=== PATIENT | male | born 1980 | race Caucasian/White ===

== ENCOUNTER 2018-05-04 07:37 | Emergency (ER) | payer OTHER ==
[~2018-05-04] VITALS: Ht 180.3 cm; Wt 87.1 kg
[2018-05-04] MEDS ORDERED: NAPR220C11 PO (08:02)
--- NOTE | 2018-05-04 08:07 | ED Lower Extremity ---
General Chief Complaint: Lower Extremity Stated Complaint: RT LEG INJ Source: family Exam Limitations: no limitations History of Present Illness Date Seen by Provider: May 04, 2018 Time Seen by Provider: 08:02 Initial Comments This 37-year-old white male presents after sustaining injury to his right knee last night at work. The patient was prying with a heavy metal pole when it suddenly slipped loose and struck him over the lateral aspect of his right knee. Patient is complaining of pain over the impact area which is the lateral tibial plateau. The patient states that the pain is sharp in nature, nonradiating, and made worse with weightbearing and flexion and extension of his right knee. They patient's past medical history includes a previous meniscal injury to the right knee and a patellar fracture. The patient denies other injury and his accident. This work related accident has been reported to his employer. Allergies and Home Medications Allergies Coded Allergies: No Known Drug Allergies (Unverified , 05/04/18) Patient Home Medication List Home Medication List Reviewed: Yes Review of Systems Constitutional: No chills EENTM: no symptoms reported Respiratory: No cough Cardiovascular: No chest pain Gastrointestinal: No nausea Genitourinary: no symptoms reported Musculoskeletal: see HPI; No back pain; joint pain (right knee), joint swelling (right knee) Skin: no symptoms reported Psychiatric/Neurological: No Symptoms Reported Past Zirigft-Tvdpeg-Crhrfb Hx Past Med/Social Hx: Reviewed Nursing Past Med/Soc Hx Patient Social History Recent Foreign Travel: No Contact w/Someone Who Travel: No Physical Exam Vital Signs Vital Signs - First Documented 05/04/18 07:51 Temp 98.6 Pulse 86 Resp 16 B/P (MAP) 133/87 (102) Pulse Ox 99 Capillary Refill : Height, Weight, BMI Height: '" Weight: lbs. oz. kg; BMI Method: General Appearance: WD/WN, no apparent distress HEENT: normal ENT inspection Neck: normal inspection Cardiovascular: regular rate, rhythm Respiratory: normal breath sounds Gastrointestinal: normal bowel sounds, non tender Back: normal inspection Hips: bilateral hip normal inspection Legs: bilateral leg normal inspection Knees: left knee non-tender, left knee normal inspection, left knee normal range of motion, left knee no evidence of injury; right knee pain, right knee soft tissue tenderness (over the right lateral tibial plateau.), right knee other (the patient's limited examination of the cruciates collaterals and menisci of the right knee were unremarkable.) Ankles: bilateral ankle normal inspection Feet: bilateral foot normal inspection Neurologic/Psychiatric: no motor/sensory deficits, alert, normal mood/affect Skin: normal color, warm/dry Progress/Results/Core Measures Results/Orders My Orders Orders - SAE MELENDEZ MD Knee 3 View Right (05/04/18 08:01) Ibuprofen Tablet (Motrin Tablet) (05/04/18 08:15) Medications Given in ED Current Medications Medications Dose Ordered Sig/Gladys Route Start Time Stop Time Status Last Admin Dose Admin Ibuprofen 800 mg ONCE ONCE PO 05/04/18 08:15 05/04/18 08:16 DC 05/04/18 08:07 800 MG Vital Signs/I&O 05/04/18 07:51 Temp 98.6 Pulse 86 Resp 16 B/P (MAP) 133/87 (102) Pulse Ox 99 Progress Progress Note : Time: 08:59 Progress Note X-ray of the right knee failed to show a fracture or dislocation. The patient was much improved with 800 mg of ibuprofen. The patient had a knee splint which he applied. I discussed findings with patient and asked that he follow-up closely today with work comp. I recommended that a reevaluation with orthopedics would be reasonable. I advised the patient return if any problems or questions. Departure Impression Primary Impression: Contusion of knee Qualified Codes: S80.01XA - Contusion of right knee, initial encounter Disposition: HOME, SELF-CARE Condition: Improved Departure-Patient Inst. Decision time for Depature: 09:02 Referrals: NO,LOCAL PHYSICIAN (PCP) Primary Care Physician Patient Instructions: Contusion (DC) Add. Discharge Instructions: 800 mg of ibuprofen 3 times a day. Knee splint. Follow up with work comp doctor today. Return if any problems or questions. All discharge instructions reviewed with patient and/or family. Voiced understanding. SAE MELENDEZ MD May 04, 2018 08:07
[2018-05-04] MEDS ORDERED: IBUPROFEN 800 MG (MOTRIN) TAB PO ONE (08:15)
--- NOTE | 2018-05-04 09:02 | Diagnostic Imaging Report ---
EXAMINATION: Right knee at 8:04 AM INDICATION: Injury, knee pain Three views were obtained. There are no prior studies available for comparison. There is no fracture, dislocation or acute bony abnormality evident. The knee joint is well-maintained although there is mild narrowing of the patellofemoral space. The soft tissues are unremarkable. IMPRESSION: There is no evidence for an acute bony abnormality. Dictated by: Dictated on workstation # [id number]
[2018-05-04 09:10] VITALS: BP 123/80
== END 2018-05-04 09:15 | disposition home or self-care (01) ==
LOC: ER FS 07:44
DX: S80.01XA Contusion of right knee, initial encounter (principal); W01.198A Fall on same level from slipping, tripping and stumbling with subsequent striking against other object, initial encounter; Y92.59 Other trade areas as the place of occurrence of the external cause; Y99.0 Civilian activity done for income or pay
CPT/HCPCS: 73562

== ENCOUNTER 2020-08-21 20:15 | Emergency (ER) | payer BC ==
[~2020-08-21 20:15] MED LIST: NAPR220C11 PO
[2020-08-21] MEDS ORDERED: AUGMENTIN 875 MG TAB (AMOXICILLIN/CLAVULANATE) PO ONE (20:30)
[2020-08-21] MEDS ORDERED: BUPIVACAINE 0.5% 30 ML (SENSORCAINE) VIAL INJ ONE (20:30)
[2020-08-21] MEDS ORDERED: LIDOCAINE 2% VISCOUS 15 ML UDC PO ONE (20:30)
[2020-08-21] MEDS ORDERED: NFCHLORHGL MM (20:33)
[2020-08-21] MEDS ORDERED: AMOX-358 PO (20:33)
--- NOTE | 2020-08-21 20:34 | ED EENT ---
History of Present Illness General Chief Complaint: Dental Problems/Pain Stated Complaint: TOOTH PAIN,LT SIDE FACIAL SWELLING Nursing Triage Note: Pt complaining of left upper and lower dental pain. Pt has an appointment with a dentist next week Source: patient Exam Limitations: no limitations History of Present Illness Date Seen by Provider: Aug 21, 2020 Time Seen by Provider: 20:15 Initial Comments Patient presents ER by private conveyance from home with chief complaint of dental pain going on for the past couple days. He has an appointment next week with the dentist. He is not on antibiotics. He has been using topical esox-kdz-nktehnn gels as well as Tylenol and ibuprofen without significant relief of pain and he does not feel like he can sleep tonight. He denies any allergies to medicines Allergies and Home Medications Allergies Coded Allergies: No Known Drug Allergies (Unverified , 05/04/18) Home Medications Amoxicillin/Potassium Clav 1 Each Tablet, 1 EACH PO BID Prescribed by: STEVE SONG on 08/21/202032 Chlorhexidine Gluconate 473 Ml Mouthwash, 30 ML MM BID Prescribed by: STEVE SONG on 08/21/202032 Patient Home Medication List Home Medication List Reviewed: Yes Review of Systems Review of Systems Constitutional: No chills, No diaphoresis Eyes: Denies Blindness, Denies Blurred Vision Ears: Denies Dizziness, Denies Pain Nose: denies clots, denies congestion Mouth: denies clots, denies loose teeth; pain, swelling Throat: denies pain; swelling Respiratory: No cough, No short of breath All Other Systems Reviewed Negative Unless Noted: Yes Past Vmximwv-Pczojp-Myjtna Hx Patient Social History Alcohol Use: Denies Use Recent Infectious Disease Expo: No Recent Hopitalizations: No Seasonal Allergies Seasonal Allergies: Yes Past Medical History Surgeries: Yes (oral/facial surgery for tooth abscess) Respiratory: No Cardiac: No Neurological: No Genitourinary: No Gastrointestinal: No Musculoskeletal: Yes (hand fx; patella fx; collar bone fx) Fractures Endocrine: No HEENT: No Cancer: No Psychosocial: No Blood Disorders: No Adverse Reaction/Blood Tranf: No Physical Exam Vital Signs Vital Signs - First Documented 08/21/20 20:18 Pulse 83 Resp 18 B/P (MAP) 165/91 (115) Pulse Ox 96 O2 Delivery Room Air Height, Weight, BMI Height: 5'11.00" Weight: 192lbs. oz. 87.146460qz; BMI Method:Stated General Appearance: WD/WN, no apparent distress Eyes: bilateral eye normal inspection, bilateral eye PERRL, bilateral eye EOMI Ears: bilateral ear auricle normal, bilateral ear canal normal Nose: normal inspection; No active bleeding, No discharge Mouth/Throat: No tongue swollen; other (Extensive dental caries and some swelling of the gingiva throughout. Tenderness without fluctuation palpable along the left lower jaw) Neck: non-tender, full range of motion, supple Cardiovascular: normal peripheral pulses, regular rate, rhythm Respiratory: no respiratory distress, no accessory muscle use Neurologic/Psychiatric: alert, oriented x 3 Skin: normal color, warm/dry Procedures/Interventions Additional Procedures: Peripheral Nerve Block Progress Inferior alveolar nerve block using the usual landmarks and a 25-gauge 1-1/2 inch needle we applied an admixture of 50-50 1% lidocaine and half percent Marcaine and the appropriate site. Patient got some decreased sensation of his tooth shortly thereafter. Tolerated procedure well. Progress/Results/Core Measures Results/Orders My Orders Orders - STEVE SONG Lidocaine 2% Viscous 15 Ml (Xylocaine Vi (08/21/20 20:30) Bupivacaine 0.5% Injection (Sensorcaine (08/21/20 20:30) Amoxicillin/Clavulanate Tablet (Augmenti (08/21/20 20:30) Bupivacaine 0.5% Injection (Sensorcaine (08/21/20 20:38) Medications Given in ED Current Medications Medications Dose Ordered Sig/Gladys Route Start Time Stop Time Status Last Admin Dose Admin Amoxicillin/ Clavulanate Potassium 875 mg ONCE ONCE PO 08/21/20 20:30 08/21/20 20:31 DC 08/21/20 20:40 875 MG Bupivacaine HCl 30 ml ONCE ONCE INJ 08/21/20 20:30 08/21/20 20:31 DC 08/21/20 20:41 30 ML Lidocaine HCl 5 ml ONCE ONCE PO 08/21/20 20:30 08/21/20 20:31 DC 08/21/20 20:41 5 ML Vital Signs/I&O 08/21/20 20:18 Pulse 83 Resp 18 B/P (MAP) 165/91 (115) Pulse Ox 96 O2 Delivery Room Air Blood Pressure Mean: 115 Progress Progress Note : Time: 20:30 Progress Note Magic mouthwash, 10 days Augmentin, a inferior alveolar nerve block and some viscous lidocaine. Departure Impression Primary Impression: Dental caries Disposition: 01 HOME, SELF-CARE Condition: Stable Departure-Patient Inst. Decision time for Depature: 20:30 Referrals: NO,LOCAL PHYSICIAN (PCP) Primary Care Physician Patient Instructions: Dental Pain (DC) Add. Discharge Instructions: Drink plenty of fluids. Stick to a liquid diet until your pain improves. Tylenol 1000 mg every 8 hours as necessary for pain. Ibuprofen 800 mg every 8 hours as necessary for pain. Augmentin 1 tablet twice a day for the next 10 days. Keep your follow-up appointment next week with the dentist. 5 cc of viscous lidocaine applied to some gauze and packed over the tooth causing the most pain and held in place for 1 hour as necessary every 6 hours. Magic mouthwash 30 cc swish for 30 seconds and then spit twice a day for the next week. All discharge instructions reviewed with patient and/or family. Voiced understanding. Scripts Amoxicillin/Potassium Clav (Augmentin 875-125 Tablet) 1 Each Tablet 1 EACH PO BID for 10 Days, #20 TAB 0 Refills Prov: STEVE SONG 08/21/20 Chlorhexidine Gluconate (Chlorhexidine Gluconate) 473 Ml Mouthwash 30 ML MM BID for 7 Days, #473 ML 0 Refills Prov: STEVE SONG 08/21/20 STEVE SONG Aug 21, 2020 20:33
[2020-08-21] MEDS ORDERED: BUPIVACAINE 0.5% 30 ML (SENSORCAINE) VIAL ONE (20:38)
[2020-08-21 20:56] VITALS: BP 165/91
== END 2020-08-21 20:57 | disposition home or self-care (01) ==
LOC: EDUNIT# 20:15 → ER FS 20:17
DX: K02.9 Dental caries, unspecified (principal)
CPT/HCPCS: 99283

== ENCOUNTER 2020-10-22 09:24 | Emergency (ER) | payer BC ==
[~2020-10-22] VITALS: Ht 175 cm; Wt 65.0 kg
[~2020-10-22 09:24] MED LIST changes: +AMOX-358 PO; +NFCHLORHGL MM
[2020-10-22 09:45] LABS: HEMATOCRIT 47 % (40-54); HEMOGLOBIN 16.1 G/DL (13.3-17.7); MEAN CORPUSCULAR HEMOGLOBIN 32 PG (25-34); MEAN CORPUSCULAR HGB CONC 34 G/DL (32-36); MEAN CORPUSCULAR VOLUME 95 FL (80-99); MEAN PLATELET VOLUME 10.5 FL (7.4-10.4); PLATELET COUNT 280 10^3/uL (130-400); WHITE BLOOD COUNT 10.7 10^3/uL (4.3-11.0)
[2020-10-22] MEDS ORDERED: FAMOTIDINE 20MG/2ML IV (PEPCID) IVP ONE (09:45)
--- NOTE | 2020-10-22 09:45 | Diagnostic Imaging Report ---
INDICATION: Chest pain. COMPARISON: None. FINDINGS: Single frontal view of the chest demonstrates normal heart size and pulmonary vascularity. The lungs are well aerated and clear. No large pleural effusion or pneumothorax is seen. The visualized osseous structures show no acute abnormalities. IMPRESSION: No acute cardiopulmonary process. Dictated by: Dictated on workstation # [id number]
[2020-10-22 09:50] LABS: BASOPHILS % (AUTO) 0 % (0-10); EOSINOPHILS # (AUTO) 0.1 10^3/uL (0.0-0.3); EOSINOPHILS % (AUTO) 1 % (0-10); LYMPHOCYTES # (AUTO) 2.2 X 10^3 (1.0-4.0); LYMPHOCYTES % (AUTO) 21 % (12-44); MONOCYTES # (AUTO) 0.6 X 10^3 (0.0-1.0); MONOCYTES % (AUTO) 6 % (0-12); NEUTROPHILS # (AUTO) 7.7 X 10^3 (1.8-7.8); NEUTROPHILS % (AUTO) 72 % (42-75)
[2020-10-22 09:56] LABS: INR 0.9 (0.8-1.4); PROTHROMBIN TIME PATIENT 12.7 SEC (12.2-14.7)
[2020-10-22 10:08] LABS: BILIRUBIN,TOTAL 0.4 MG/DL (0.1-1.0); BUN/CREATININE RATIO 11; CALCIUM 9.7 MG/DL (8.5-10.1); CARBON DIOXIDE 26 MMOL/L (21-32); CHLORIDE 104 MMOL/L (98-107); CREATININE SERUM 0.83 MG/DL (0.60-1.30); GFR ESTIMATED 102; GLUCOSE 106 MG/DL (70-105); SODIUM 140 MMOL/L (135-145)
[2020-10-22 10:09] LABS: ALANINE AMINOTRANSFERASE 20 U/L (0-55); ALKALINE PHOSPHATASE 80 U/L (40-136); TOTAL PROTEIN 7.4 GM/DL (6.4-8.2)
[2020-10-22 10:10] LABS: ALBUMIN 4.9 GM/DL (3.2-4.5)
[2020-10-22 11:06] VITALS: BP 168/86
--- NOTE | 2020-10-22 11:08 | ED Cardiac General ---
History of Present Illness General Chief Complaint: Chest Pain Stated Complaint: CHEST PAIN; HEMAEMESIS; ELEV BLOOD PRESSURE Nursing Triage Note: PT REPORTS CHEST PAIN X 5 DAYS. HE REPORTS EMS CAME OUT LAST NIGHT BUT HE COULD NOT GO WITH THEM BC HE HAD HIS KIDS. HE STATED "THEY WANTED TO LIFE FLIGHT ME". HE ALSO REPORTS HE HAS BEEN HAVING SOME EPISODES OF VOMTING BLOOD. PT DRINKS BEER DAILY AND HE STATES HE HAS A 4 BEER MAXIMUM LIMIT. DENIES BLOODY STOOLS. HAS BEEN TAKING PEPTO. Source: family Exam Limitations: no limitations History of Present Illness Date Seen by Provider: Oct 22, 2020 Time Seen by Provider: 19:30 Initial Comments Patient is a 40-year-old male presents with epigastric pain, tenderness with hematemesis intermittently for the past 24 hours. Patient states he vomited blood clot yesterday evening followed by bright-tinged blood. Reports some chest tightness shortness of breath. His symptoms occur after eating and drinking. Patient drinks beer daily and states he has for beer maximum limit. He denies bloody stools dark tarry stools but has been taking Pepto-Bismol and Pepcid AC. Denies exertional chest pain, shortness of breath nausea sweats. No fevers chills. Patient does not take NSAIDs and is not on anticoagulation therapy. No history of peptic ulcer disease. No other symptoms or complaints. Timing/Duration: 5-6 days Severity: mild Location: epigastric Activities at Onset: other Prior CP/Workup: other Modifying Factors: improves with other NTG SL CHASSIS WIRER: No ASA po CHASSIS WIRER: No Associated Systoms: Other Allergies and Home Medications Allergies Coded Allergies: No Known Drug Allergies (Unverified , 05/04/18) Home Medications Amoxicillin/Potassium Clav 1 Each Tablet, 1 EACH PO BID Prescribed by: STEVE SONG on 08/21/202032 Chlorhexidine Gluconate 473 Ml Mouthwash, 30 ML MM BID Prescribed by: STEVE SONG on 08/21/202032 Patient Home Medication List Home Medication List Reviewed: Yes Review of Systems Review of Systems Constitutional: see HPI EENTM: See HPI Respiratory: See HPI Cardiovascular: See HPI Gastrointestinal: See HPI Genitourinary: See HPI Musculoskeletal: see HPI Skin: see HPI Psychiatric/Neurological: See HPI Endocrine: See HPI Hematologic/Lymphatic: See HPI Past Jrlggtl-Hjlwze-Rvyrdq Hx Patient Social History Tobacco Use?: No Use of E-Cig and/or Vaping dev: No Substance use?: No Alcohol Use?: No Pt feels they are or have been: Yes Seasonal Allergies Seasonal Allergies: Yes Past Medical History Surgeries: Yes (oral/facial surgery for tooth abscess) Respiratory: No Cardiac: No Neurological: No Genitourinary: No Gastrointestinal: No Musculoskeletal: Yes (hand fx; patella fx; collar bone fx) Fractures Endocrine: No HEENT: No Cancer: No Psychosocial: No Blood Disorders: No Adverse Reaction/Blood Tranf: No Physical Exam Vital Signs Vital Signs - First Documented 10/22/20 09:30 Temp 36.6 Pulse 92 Resp 16 B/P (MAP) 147/89 (108) Pulse Ox 100 O2 Delivery Room Air Capillary Refill : Less Than 3 Seconds Height, Weight, BMI Height: 5'11.00" Weight: 192lbs. oz. 87.134726is; 21.00 BMI Method:Stated General Appearance: No Apparent Distress, WD/WN, Anxious HEENT: PERRL/EOMI, Normal ENT Inspection, Pharynx Normal Respiratory: Chest Non Tender, Lungs Clear Cardiovascular: Regular Rate, Rhythm, No Edema Gastrointestinal: Soft, Tenderness (Midepigastric pain/tenderness) Extremity: Normal Capillary Refill, Normal Inspection Neurologic/Psychiatric: Alert, Oriented x3 Skin: Warm/Dry, Cool Focused Exam Sepsis Stage: Ruled Out Lactate Level 10/22/20 09:50: Lactic Acid Level 1.52 Lactic Acid Level Laboratory Tests Test 10/22/20 09:50 Lactic Acid Level 1.52 MMOL/L (0.50-2.00) Progress/Results/Core Measures Results/Orders Lab Results Laboratory Tests Test 10/22/20 09:30 10/22/20 09:50 Range/Units White Blood Count 10.7 4.3-11.0 10^3/uL Red Blood Count 5.01 4.35-5.85 10^6/uL Hemoglobin 16.1 13.3-17.7 G/DL Hematocrit 47 40-54 % Mean Corpuscular Volume 95 80-99 FL Mean Corpuscular Hemoglobin 32 25-34 PG Mean Corpuscular Hemoglobin Concent 34 32-36 G/DL Red Cell Distribution Width 12.9 10.0-14.5 % Platelet Count 280 130-400 10^3/uL Mean Platelet Volume 10.5 H 7.4-10.4 FL Immature Granulocyte % (Auto) 0 % Neutrophils (%) (Auto) 72 42-75 % Lymphocytes (%) (Auto) 21 12-44 % Monocytes (%) (Auto) 6 0-12 % Eosinophils (%) (Auto) 1 0-10 % Basophils (%) (Auto) 0 0-10 % Neutrophils # (Auto) 7.7 1.8-7.8 X 10^3 Lymphocytes # (Auto) 2.2 1.0-4.0 X 10^3 Monocytes # (Auto) 0.6 0.0-1.0 X 10^3 Eosinophils # (Auto) 0.1 0.0-0.3 10^3/uL Basophils # (Auto) 0.0 0.0-0.1 10^3/uL Immature Granulocyte # (Auto) 0.0 0.0-0.1 10^3/uL Prothrombin Time 12.7 12.2-14.7 SEC INR Comment 0.9 0.8-1.4 Sodium Level 140 135-145 MMOL/L Potassium Level 4.0 3.6-5.0 MMOL/L Chloride Level 104 98-107 MMOL/L Carbon Dioxide Level 26 21-32 MMOL/L Anion Gap 10 5-14 MMOL/L Blood Urea Nitrogen 9 7-18 MG/DL Creatinine 0.83 0.60-1.30 MG/DL Estimat Glomerular Filtration Rate 102 BUN/Creatinine Ratio 11 Glucose Level 106 H 70-105 MG/DL Calcium Level 9.7 8.5-10.1 MG/DL Corrected Calcium 8.5-10.1 MG/DL Total Bilirubin 0.4 0.1-1.0 MG/DL Aspartate Amino Transf (AST/SGOT) 21 5-34 U/L Alanine Aminotransferase (ALT/SGPT) 20 0-55 U/L Alkaline Phosphatase 80 40-136 U/L Troponin I < 0.30 <0.30 NG/ML Total Protein 7.4 6.4-8.2 GM/DL Albumin 4.9 H 3.2-4.5 GM/DL Lactic Acid Level 1.52 0.50-2.00 MMOL/L My Orders Orders - KAILA BRIAN DO Cbc With Automated Diff (10/22/20 09:30) Comprehensive Metabolic Panel (10/22/20 09:30) Troponin I Fs (10/22/20 09:30) Chest 1 View Ap/Pa Only (10/22/20 09:30) Protime With Inr (10/22/20 09:30) Ekg Tracing (10/22/20 09:33) Famotidine Injection (Pepcid Injection) (10/22/20 09:45) Lactic Acid Analyzer (10/22/20 09:31) Medications Given in ED Current Medications Medications Dose Ordered Sig/Gladys Route Start Time Stop Time Status Last Admin Dose Admin Famotidine 20 mg ONCE ONCE IVP 10/22/20 09:45 10/22/20 09:46 DC 10/22/20 09:49 20 MG Vital Signs/I&O 10/22/20 10/22/20 09:30 09:30 Temp 36.6 Pulse 92 Resp 16 B/P (MAP) 147/89 (108) Pulse Ox 100 O2 Delivery Room Air Room Air Blood Pressure Mean: 108 Departure Communication (Admissions) Chest x-ray: No free air. Minimal abdominal pain/tenderness. EKG, troponin nonacute suspect gastritis versus peptic ulcer disease. IV Pepcid given. Did offer the patient transfer to [facility] for evaluation and EGD. Patient declined. He prefers outpatient medication and PCP follow-up for GI referral. Return precautions reviewed. Patient verbalizes understanding agreement discharge instructions prior to departure. Impression Primary Impression: Acute gastritis with bleeding Disposition: 01 HOME, SELF-CARE Condition: Stable Departure-Patient Inst. Decision time for Depature: 11:08 Referrals: SELF,BRAD ESPINOSA (PCP/Family) Primary Care Physician Patient Instructions: Gastritis ED Add. Discharge Instructions: Please abstain from alcohol, NSAIDs, caffeine, spicy foods continue Pepcid AC twice daily and take omeprazole as directed. Follow-up with your PCP tomorrow for GI referral. Return to the ED if new or worsening symptoms. All discharge instructions reviewed with patient and/or family. Voiced understanding. Scripts Omeprazole (Omeprazole) 40 Mg Capsule. 40 MG PO DAILY, #30 CAP Prov: KAILA RBIAN DO 10/22/20 KAILA BRIAN DO Oct 22, 2020 11:08
[2020-10-22] MEDS ORDERED: OMEP40CA6 PO (11:10)
--- OUTSIDE RECORDS SUMMARY | 2020-10-22 14:23 | XMS REPORT | Clinical Summary ---
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 Name Role Phone PCP Unavailable Allergies Not on File Medications Not on file Active Problems Not on file Social History Date Tobacco Use Types Packs/Day Years Used Never Assessed Sex Assigned at Date Recorded Not on file Last Filed Vital Signs Reading Time Taken Comments Vital Sign 130/80 06/09/2007 1:46 PM CDT Blood Pressure 84 06/09/2007 1:46 PM CDT Pulse - - Temperature - - Respiratory Rate - - Oxygen Saturation - - Inhaled Oxygen Concentration 76.7 kg (169 lb) 06/09/2007 1:46 PM CDT normal Weight 180.3 cm (5' 11") 06/09/2007 1:46 PM CDT Height 23.57 06/09/2007 1:46 PM CDT Body Mass Index Plan of Treatment Not on file Results Not on filefrom Last 3 Months
== END 2020-10-22 11:11 | disposition home or self-care (01) ==
LOC: EDUNIT# 09:24 → ER FS 09:25
DX: K29.01 Acute gastritis with bleeding (principal)
CPT/HCPCS: 36415; 71045; 80053; 83605; 84484; 85025; 85610; 93005

== ENCOUNTER 2020-12-22 22:49 | Emergency (ER) | payer BC ==
[~2020-12-22] VITALS: Ht 180 cm; Wt 83.9 kg
[~2020-12-22 22:49] MED LIST changes: +OMEP40CA6 PO
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
--- NOTE | 2020-12-23 00:17 | Diagnostic Imaging Report ---
INDICATION: Laceration. Trauma. COMPARISON: None. FINDINGS: 3 views of the right hand were obtained and show no fractures, dislocations, or other acute bony abnormalities. Chronic deformity of the 5th metacarpal is consistent with old healed fracture. Joint spaces are well maintained throughout. Soft tissue emphysema is noted. No radiopaque foreign bodies are identified. IMPRESSION: Soft tissue emphysema, but otherwise unremarkable radiographic exam of the right hand. Dictated by: Dictated on workstation # [id number]
[2020-12-23 00:23] VITALS: BP 146/85
== END 2020-12-23 00:15 | disposition home or self-care (01) ==
LOC: EDUNIT# 22:49 → ER FS 22:53
DX: S61.212A Laceration without foreign body of right middle finger without damage to nail, initial encounter (principal); Y04.2XXA Assault by strike against or bumped into by another person, initial encounter
CPT/HCPCS: 73130

== ENCOUNTER 2021-03-03 04:24 | Emergency (ER) | payer BC ==
[~2021-03-03] VITALS: Ht 180 cm; Wt 86.0 kg
[2021-03-03] MEDS ORDERED: AUGMENTIN 875 MG TAB (AMOXICILLIN/CLAVULANATE) ONE (05:01)
--- NOTE | 2021-03-03 05:02 | ED EENT ---
History of Present Illness General Chief Complaint: Dental Problems/Pain Stated Complaint: RT SIDE JAW PAIN;MOLAR Nursing Triage Note: RIGHT LOWER SIDE OF THE PTS MOUTH HAS BROKEN, DECAYED, AND PARTIALLY MISSING TEETH CLEAR TO THE GUM LINE. HE REPORTS HE GOT 2 KEFLEX TWO DAYS AGO BUT SINCE IT WAS THE HOLIDAY WEEKEND HIS PHARMACY WAS NOT OPEN SO HE HAS NOT GOTTEN HIS PRESCRIPTION FILLED. REPORTS HE IS UNABLE TO SLEEP. Source: patient Exam Limitations: no limitations History of Present Illness Date Seen by Provider: Mar 03, 2021 Time Seen by Provider: 04:45 Initial Comments Patient is a 40-year-old male with poor dentition who. Seen in the emergency department 2 days ago for dental pain and started on Keflex. He is unable to fill the prescription due to the holiday. He reports pain tenderness with swelling in the submandibular region. He states he is unable to sleep due to the pain. Denies dysphonia hoarseness or drooling. No other symptoms or complaints Timing/Duration: gradual Severity: moderate Location: facial, dental Prearrival Treatment: prescription meds Modifying Factors: Improves With Other Associated Symptoms: other Allergies and Home Medications Allergies Coded Allergies: No Known Drug Allergies (Unverified , 05/04/18) Patient Home Medication List Home Medication List Reviewed: Yes Amoxicillin/Potassium Clav (Augmentin 875-125 Tablet) 1 Each Tablet, 1 EACH PO BID Prescribed by: STEVE SONG on 08/21/202032 Chlorhexidine Gluconate (Chlorhexidine Gluconate) 473 Ml Mouthwash, 30 ML MM BID Prescribed by: STEVE SONG on 08/21/202032 Naproxen Sodium (Aleve) 220 Mg Capsule, 220 MG PO, (Reported) Entered as Reported by: DANY RODRIGUEZ on 05/04/18 0802 Omeprazole (Omeprazole) 40 Mg Capsule.dr, 40 MG PO DAILY Prescribed by: KAILA BRIAN on 10/22/20 1110 Review of Systems Review of Systems Constitutional: see HPI Eyes: See HPI Ears: See HPI Nose: see HPI Mouth: see HPI Past Drmuslm-Hbauyg-Htkzsr Hx Patient Social History Tobacco Use?: Yes Tobacco type used: Cigarettes Smoking Status: Current Everyday Smoker Use of E-Cig and/or Vaping dev: No Substance use?: No Alcohol Use?: Yes Alcohol type: Beer Alcohol Frequency: Couple times a week Pt feels they are or have been: No Immunizations Up To Date First/Initial COVID19 Vaccinat: 2020 Second COVID19 Vaccination Cash: 2020 COVID19 Vaccine Senior Credit Officer: RENE Seasonal Allergies Seasonal Allergies: Yes Past Medical History Surgeries: Yes (oral/facial surgery for tooth abscess) Respiratory: No Cardiac: No Neurological: No Genitourinary: No Gastrointestinal: No Musculoskeletal: Yes (hand fx; patella fx; collar bone fx) Fractures Endocrine: No HEENT: No Cancer: No Psychosocial: No Blood Disorders: No Adverse Reaction/Blood Tranf: No Physical Exam Vital Signs Vital Signs - First Documented 03/03/21 04:35 Temp 36.3 Pulse 69 Resp 18 B/P (MAP) 151/82 (105) Pulse Ox 96 O2 Delivery Room Air Height, Weight, BMI Height: 5'11.00" Weight: 192lbs. oz. 87.839318ce; 26.00 BMI Method:Stated General Appearance: moderate distress Nose: normal inspection Mouth/Throat: pharynx normal, other (Poor dentition with widespread erosions with fractures. Right anterior submandibular swelling. No fluctuance erythema or cellulitis. No trismus drooling or dysphonia.) Neck: full range of motion, supple Procedures/Interventions Suture Size: 4-0 Progress/Results/Core Measures Results/Orders My Orders Orders - KAILA BRIAN DO Amoxicillin/Clavulanate Tablet (Augmenti (03/03/21 08:00) Tramadol Tablet (Ultram Tablet) (03/03/21 05:00) Vital Signs/I&O 03/03/21 04:35 Temp 36.3 Pulse 69 Resp 18 B/P (MAP) 151/82 (105) Pulse Ox 96 O2 Delivery Room Air Blood Pressure Mean: 105 Departure Communication (Admissions) Antibiotics and pain medication given. Patient instructed to fill prescription and 3 hours at local pharmacy Impression Primary Impression: Facial swelling Additional Impression: Dental caries Disposition: HOME, SELF-CARE Condition: Stable Departure-Patient Inst. Decision time for Depature: 05:01 Referrals: SELFBRAD MD (PCP/Family) Primary Care Physician Patient Instructions: Tooth Decay, Adult Add. Discharge Instructions: Please fill antibiotics in the morning as previously prescribed and take as directed. Follow-up with dentist of choice [facility]. Take tramadol in addition to ibuprofen for relief. All discharge instructions reviewed with patient and/or family. Voiced understanding. KAILA BRIAN DO Mar 03, 2021 05:02
[2021-03-03 05:03] VITALS: BP 151/82
[2021-03-03] MEDS ORDERED: AUGMENTIN 875 MG TAB (AMOXICILLIN/CLAVULANATE) PO SCH (08:00)
== END 2021-03-03 05:04 | disposition home or self-care (01) ==
LOC: EDUNIT# 04:24 → ER FS 04:26
DX: K02.9 Dental caries, unspecified (principal); F17.210 Nicotine dependence, cigarettes, uncomplicated; Z79.2 Long term (current) use of antibiotics
CPT/HCPCS: 99283

== ENCOUNTER 2021-12-28 12:31 | Emergency (ER) | payer BC ==
[~2021-12-28] VITALS: Ht 180 cm; Wt 90.0 kg
[2021-12-28] MEDS ORDERED: ACETAMINOPHEN 500 MG TAB (TYLENOL) PO STA (12:53)
[2021-12-28] MEDS ORDERED: NS IV 1000 ML 1,000 ML IV STA (12:56)
[2021-12-28] MEDS ORDERED: KETOROLAC 30 MG/ML VIAL IVP STA (12:56)
[2021-12-28] MEDS ORDERED: CATHETER FLUSH 10 ML SYR IV PRN (13:00)
[2021-12-28] MEDS ORDERED: IOHEXOL 350 MG/ML 100 ML (OMNIPAQUE 350) VIAL IV ONE (13:00)
[2021-12-28] MEDS ORDERED: HOLD METFORMIN - RECEIVED CONTRAST 20 ML VIAL IV SCH (13:00)
[2021-12-28] MEDS ORDERED: NS 100 ML (IVPB) BAG IV ONE (13:00)
[2021-12-28 13:01] LABS: BASOPHILS % (AUTO) 0 % (0-10); EOSINOPHILS # (AUTO) 0.1 10^3/uL (0.0-0.3); EOSINOPHILS % (AUTO) 1 % (0-10); HEMATOCRIT 46 % (40-54); HEMOGLOBIN 16.4 g/dL (13.3-17.7); LYMPHOCYTES # (AUTO) 0.4 10^3/uL (1.0-4.0); LYMPHOCYTES % (AUTO) 4 % (12-44); MEAN CORPUSCULAR HEMOGLOBIN 32 pg (25-34); MEAN CORPUSCULAR HGB CONC 36 g/dL (32-36); MEAN CORPUSCULAR VOLUME 89 fL (80-99); MEAN PLATELET VOLUME 10.5 fL (9.0-12.2); MONOCYTES % (AUTO) 11 % (0-12); NEUTROPHILS # (AUTO) 7.8 10^3/uL (1.8-7.8); NEUTROPHILS % (AUTO) 83 % (42-75); PLATELET COUNT 233 10^3/uL (130-400); WHITE BLOOD COUNT 9.4 10^3/uL (4.3-11.0)
--- NOTE | 2021-12-28 13:11 | ED General ---
General Chief Complaint: General Problems/Pain Stated Complaint: LT FOOT PAIN; SOB; SYNCOPAL EPISODE; LIGHT-HEADED Nursing Triage Note: LEFT GROIN PAIN LAST PM AT 2200. REPORTS FEVER, BODY ACHES AND PAIN ALL OVER THIS AM. FELL GETTING OUT OF THE SHOWER THIS AM HEADACHE Source of Information: Patient History of Present Illness Date Seen by Provider: Dec 28, 2021 Time Seen by Provider: 12:35 Initial Comments 41-year-old male presenting with complaints of left groin pain that started suddenly at 2200 last night. He also has been having fever and states that when he took his temperature at home it was 110 F. He complains of body aches and pain all over this morning. When he got out of the shower he states that he passed out from the pain in his left groin and hip. He denies any trauma or injury prior to this fall earlier today. He has increased pain with leg movement and palpation. He has no contacts with his children at home having congestion and cough. He states he took ibuprofen at home to try and help with the fever and hip pain as well as body aches. However he continued to feel bad and was hyperventilating on arrival to the emergency department. He complains of numbness and tingling in his fingers of his hands. He denies having pain or injury like this previously. He has no sores or cuts on his leg. He denies any swelling with his testicles. He has had no change in his bowel movements. He denies any pain or burning with urination and has not seen any blood in his urine. Timing/Duration: Other (Progressively worsening since 2200 last night) Severity: Severe Modifying Factors: worse with Movement Associated Systoms: No Chest Pain, No Cough, No Diaphoresis; Fever/Chills, Headaches, Malaise; No Nausea/Vomiting, No Rash, No Seizure; Shortness of Air (Feels short of breath as he is hyperventilating here in the ED), Syncope (Passed out when he got out of the shower earlier today); No Weakness Allergies and Home Medications Allergies Coded Allergies: No Known Drug Allergies (Unverified , 05/04/18) Patient Home Medication List Home Medication List Reviewed: Yes Amoxicillin/Potassium Clav (Augmentin 875-125 Tablet) 1 Each Tablet, 1 EACH PO BID Prescribed by: TSEVE SONG on 08/21/202032 Chlorhexidine Gluconate (Chlorhexidine Gluconate) 473 Ml Mouthwash, 30 ML MM BID Prescribed by: STEVE SONG on 08/21/202032 Ciprofloxacin HCl (Ciprofloxacin HCl) 500 Mg Tablet, 500 MG PO BID Prescribed by: BE BILLS on 12/28/21 151 Ibuprofen (Ibuprofen) 800 Mg Tablet, 800 MG PO Q8H PRN for PAIN Prescribed by: BE BILLS on 12/28/21 151 Naproxen Sodium (Aleve) 220 Mg Capsule, 220 MG PO, (Reported) Entered as Reported by: DANY RODRIGUEZ on 05/04/18 0802 Nirmatrelvir/Ritonavir (Paxlovid 300-100 mg Pack (Eua)) 300 Mg (150 Mg X 2)-100 Mg Tab.ds.pk, 1 EACH PO BID Prescribed by: BE BILLS on 12/28/21 151 Omeprazole (Omeprazole) 40 Mg Capsule.dr, 40 MG PO DAILY Prescribed by: KAILA BRIAN on 10/22/20 1110 Review of Systems Review of Systems Constitutional: chills, fever, malaise EENTM: No ear pain, No vision loss, No nose congestion Respiratory: see HPI; No cough; short of breath; No stridor, No wheezing Cardiovascular: No chest pain Gastrointestinal: No abdominal pain, No constipation, No diarrhea, No nausea, No vomiting Genitourinary: No dysuria, No hematuria Musculoskeletal: see HPI Skin: No rash Psychiatric/Neurological: Headache Hematologic/Lymphatic: Denies Blood Clots Past Ribxgeq-Dwardf-Fylxem Hx Patient Social History Tobacco Use?: Yes Tobacco type used: Cigarettes Smoking Status: Current Everyday Smoker Use of E-Cig and/or Vaping dev: No Substance use?: No Alcohol Use?: Yes Alcohol type: Beer, Hard Liquor Alcohol Frequency: Daily Pt feels they are or have been: No Immunizations Up To Date First/Initial COVID19 Vaccinat: 2020 Second COVID19 Vaccination Cash: 2020 Third COVID19 Vaccination Date: 2020 Seasonal Allergies Seasonal Allergies: Yes Past Medical History Surgeries: Yes (oral/facial surgery for tooth abscess) Respiratory: No Cardiac: No Neurological: No Genitourinary: No Gastrointestinal: No Musculoskeletal: Yes (hand fx; patella fx; collar bone fx) Fractures Endocrine: No HEENT: No Cancer: No Psychosocial: No Blood Disorders: No Adverse Reaction/Blood Tranf: No Physical Exam Vital Signs Vital Signs - First Documented 12/28/21 12/28/21 12:40 15:12 Temp 37.5 Pulse 107 Resp 16 B/P (MAP) 128/78 (95) Pulse Ox 99 O2 Delivery Room Air Capillary Refill : Less Than 3 Seconds Height, Weight, BMI Height: 5'11.00" Weight: 192lbs. oz. 87.663038em; 27.00 BMI Method:Stated General Appearance: Anxious, Mild Distress HEENT: PERRL/EOMI, Pharynx Normal, Moist Mucous Membranes Neck: Full Range of Motion, Normal Inspection, Non Tender, Supple Respiratory: Chest Non Tender, Lungs Clear, Normal Breath Sounds, No Accessory Muscle Use, No Respiratory Distress Cardiovascular: Regular Rate, Rhythm, Normal Peripheral Pulses Gastrointestinal: Normal Bowel Sounds, No Pulsatile Mass, Non Tender, Soft Rectal: Deferred Extremity: Normal Capillary Refill; No Normal Range of Motion (Decreased range of motion due to pain in the left hip and groin.); No Calf Tenderness, No Pedal Edema, Other (Pain with palpation of the left groin and lateral hip.) Neurologic/Psychiatric: Alert, Oriented x3, youth care professional II-XII Norm as Tested, Other (Patient is anxious and hyperventilating) Skin: Normal Color, Warm/Dry; No Rash Focused Exam Lactate Level 12/28/21 12:55: Lactic Acid Level 2.84*H Lactic Acid Level Laboratory Tests Test 12/28/21 12:55 Lactic Acid Level 2.84 MMOL/L (0.50-2.00) *H Procedures/Interventions Suture Size: 4-0 Progress/Results/Core Measures Suspected Sepsis SIRS Temperature: Pulse: 107 Respiratory Rate: 16 Laboratory Tests 12/28/21 12:55: White Blood Count 9.4 Blood Pressure 128 /78 Mean: 95 12/28/21 12:55: Lactic Acid Level 2.84*H Laboratory Tests 12/28/21 12:55: Creatinine 1.15, Platelet Count 233, Total Bilirubin 0.4 Results/Orders Lab Results Laboratory Tests Test 12/28/21 12:55 12/28/21 13:17 Range/Units White Blood Count 9.4 4.3-11.0 10^3/uL Red Blood Count 5.14 4.30-5.52 10^6/uL Hemoglobin 16.4 13.3-17.7 g/dL Hematocrit 46 40-54 % Mean Corpuscular Volume 89 80-99 fL Mean Corpuscular Hemoglobin 32 25-34 pg Mean Corpuscular Hemoglobin Concent 36 32-36 g/dL Red Cell Distribution Width 12.3 10.0-14.5 % Platelet Count 233 130-400 10^3/uL Mean Platelet Volume 10.5 9.0-12.2 fL Immature Granulocyte % (Auto) 1 % Neutrophils (%) (Auto) 83 H 42-75 % Lymphocytes (%) (Auto) 4 L 12-44 % Monocytes (%) (Auto) 11 0-12 % Eosinophils (%) (Auto) 1 0-10 % Basophils (%) (Auto) 0 0-10 % Neutrophils # (Auto) 7.8 1.8-7.8 10^3/uL Lymphocytes # (Auto) 0.4 L 1.0-4.0 10^3/uL Monocytes # (Auto) 1.0 0.0-1.0 10^3/uL Eosinophils # (Auto) 0.1 0.0-0.3 10^3/uL Basophils # (Auto) 0.0 0.0-0.1 10^3/uL Immature Granulocyte # (Auto) 0.1 0.0-0.1 10^3/uL Neutrophils % (Manual) 84 % Lymphocytes % (Manual) 6 % Monocytes % (Manual) 9 % Eosinophils % (Manual) 1 % Sodium Level 137 135-145 MMOL/L Potassium Level 3.8 3.6-5.0 MMOL/L Chloride Level 103 98-107 MMOL/L Carbon Dioxide Level 18 L 21-32 MMOL/L Anion Gap 16 H 5-14 MMOL/L Blood Urea Nitrogen 15 7-18 MG/DL Creatinine 1.15 0.60-1.30 MG/DL Estimat Glomerular Filtration Rate 81 BUN/Creatinine Ratio 13 Glucose Level 113 H 70-105 MG/DL Lactic Acid Level 2.84 *H 0.50-2.00 MMOL/L Calcium Level 9.7 8.5-10.1 MG/DL Corrected Calcium 8.5-10.1 MG/DL Total Bilirubin 0.4 0.1-1.0 MG/DL Aspartate Amino Transf (AST/SGOT) 19 5-34 U/L Alanine Aminotransferase (ALT/SGPT) 20 0-55 U/L Alkaline Phosphatase 85 40-136 U/L C-Reactive Protein 0.76 H <0.50 MG/DL Total Protein 7.2 6.4-8.2 GM/DL Albumin 4.8 H 3.2-4.5 GM/DL Serum Alcohol < 10 <10 MG/DL Influenza Type A (RT-PCR) Not Detected Not Detecte Influenza Type B (RT-PCR) Not Detected Not Detecte SARS-CoV-2 RNA (RT-PCR) Detected H Not Detecte Urine Color YELLOW Urine Clarity CLEAR Urine pH 5.5 5-9 Urine Specific [place] 1.010 L 1.016-1.022 Urine Protein NEGATIVE NEGATIVE Urine Glucose (UA) NEGATIVE NEGATIVE Urine Ketones NEGATIVE NEGATIVE Urine Nitrite NEGATIVE NEGATIVE Urine Bilirubin NEGATIVE NEGATIVE Urine Urobilinogen 0.2 < = 1.0 MG/DL Urine Leukocyte Esterase NEGATIVE NEGATIVE Urine RBC (Auto) NEGATIVE NEGATIVE Urine RBC NONE /HPF Urine WBC 5-10 H /HPF Urine Squamous Epithelial Cells 2-5 /HPF Urine Crystals NONE /LPF Urine Bacteria FEW H /HPF Urine Casts NONE /LPF Urine Mucus LARGE H /LPF Urine Culture Indicated YES Urine Opiates Screen NEGATIVE NEGATIVE Urine Oxycodone Screen NEGATIVE NEGATIVE Urine Methadone Screen NEGATIVE NEGATIVE Urine Propoxyphene Screen NEGATIVE NEGATIVE Urine Barbiturates Screen NEGATIVE NEGATIVE Ur Tricyclic Antidepressants Screen POSITIVE H NEGATIVE Urine Phencyclidine Screen NEGATIVE NEGATIVE Urine Amphetamines Screen NEGATIVE NEGATIVE Urine Methamphetamines Screen NEGATIVE NEGATIVE Urine Benzodiazepines Screen NEGATIVE NEGATIVE Urine Cocaine Screen NEGATIVE NEGATIVE Urine Cannabinoids Screen NEGATIVE NEGATIVE My Orders Orders - BE BILLS MD Acetaminophen Tablet (Tylenol Tablet) (12/28/21 12:53) Cbc With Automated Diff (12/28/21 12:53) Comprehensive Metabolic Panel (12/28/21 12:53) Blood Culture (12/28/21 12:53) Ua Culture If Indicated (12/28/21 12:53) Chest 1 View Ap/Pa Only (12/28/21 12:53) Ed Iv/Invasive Line Start (12/28/21 12:53) Crp Fs (12/28/21 12:53) Lactic Acid Analyzer (12/28/21 12:53) Ct Abdomen/Pelvis W (12/28/21 12:53) Covid 19 Inhouse Test (12/28/21 12:53) Influenza A And B By Pcr (12/28/21 12:53) Drug Screen Stat (Urine) (12/28/21 12:53) Alcohol (12/28/21 12:53) Ns Iv 1000 Ml (Sodium Chloride 0.9%) (12/28/21 12:56) Ketorolac Injection (Toradol Injection) (12/28/21 12:56) Iohexol Injection (Omnipaque 350 Mg/Ml 1 (12/28/21 13:00) Received Contrast (Hold Metformin- Contr (12/28/21 13:00) Ns (Ivpb) (Sodium Chloride 0.9% Ivpb Bag (12/28/21 13:00) Sodium Chloride Flush (Catheter Flush Sy (12/28/21 13:00) Manual Differential (12/28/21 12:55) Lactated Ringers (Lr 1000 Ml Iv Solution (12/28/21 13:53) Urine Culture (12/28/21 13:17) Ceftriaxone 1 Gm Pre-Mix (Rocephin 1 Gm (12/28/21 15:03) Medications Given in ED Current Medications Medications Dose Ordered Sig/Gladys Route Start Time Stop Time Status Last Admin Dose Admin Sodium Chloride 10 ml NEEDED PRN IV 12/28/21 13:00 12/28/21 15:24 DC 12/28/21 13:54 10 ML Sodium Chloride 100 ml ONCE ONCE IV 12/28/21 13:00 12/28/21 13:10 DC 12/28/21 13:54 80 ML Vital Signs/I&O 12/28/21 12/28/21 12/28/21 12:40 15:12 15:23 Temp 37.5 36.8 36.8 Pulse 107 92 92 Resp 16 16 16 B/P (MAP) 128/78 (95) 125/72 125/72 Pulse Ox 99 99 99 O2 Delivery Room Air Room Air Capillary Refill : Less Than 3 Seconds Blood Pressure Mean: 95 Progress Note #1: Progress Note Obtain COVID and influenza swab since he reports no contacts with upper respiratory infection at home and states he feels like he has a headache with body aches and fever with chills. He also is complaining of severe groin pain on the left without any acute trauma so we will obtain a CT scan of the abdomen and pelvis to help evaluate for possible joint effusion, septic arthritis, kidney stone, pyelonephritis, colitis, diverticulitis, proctitis. Check basic labs including blood cultures with a lactic acid since he reports having fever and chills at home. Administer normal saline 1 L IV fluid bolus for hydration, acetaminophen 1 g p.o. for complaint of fever and chills, Toradol 30 mg IV for left groin pain. Progress Note #2: Progress Note White blood cell count was normal at 9.4. Chemistry panel did not show acute significant abnormality. Lactic acid was elevated to 2.84. His urinalysis did have white blood cells with bacteria and mucus. A culture was reflexed. Influenza was negative but he was positive for COVID. CT scan of the abdomen and pelvis did not show acute pathology in his groin to account for his pain on the left side. However the CT scan did show he had some dilation and inflammation of the left ureter possible infection versus recently passed kidney stone. This certainly could have contributed to his pain going into the groin. Reassured patient and he was given a second liter of IV fluids for his elevated lactic acid. He was started on Rocephin for his urinary tract infection. Counseled to push fluids and rest. Wear a mask and isolate for the next 5 days. After that he could return to work but he would need to continue to wear the mask for total of 10 days. Diagnostic Imaging Diagonstic Imaging: CT Plain Films/CT/US/NM/MRI: abdomen, pelvis Comments [facility]. [place], [place] NAME: BETZAIDA ZAMUDIO [facility] REC#: [id number] PT STATUS: DEP ER : 1980 PHYSICIAN: BE BILLS MD ADMIT DATE: 12/28/21/ER FS Signed Date of Exam:12/28/21 CT ABDOMEN/PELVIS W CT ABDOMEN/PELVIS W TECHNIQUE: Multiple contiguous axial images were obtained through the abdomen and pelvis after administration of intravenous contrast. All CT scans use one or more of the following dose optimizing techniques: automated exposure control, MA and/or KvP adjustment based on patient size and exam type or iterative reconstruction. INDICATION: Left groin pain with fever and chills. COMPARISON: None available. FINDINGS: Lower chest: The lung bases are clear. No pericardial or pleural effusion. Peritoneum: No free intraperitoneal air or fluid. Liver and biliary system: Diffuse hypoattenuation liver is most indicative of hepatic steatosis. The gallbladder is normal. No biliary duct dilation. Spleen and Pancreas: Spleen is normal. The pancreas enhances normally without mass lesion or peripancreatic inflammatory changes. Adrenals: Normal. tract: The kidneys enhance normally without suspicious mass or obstruction. There is a 5 mm nonobstructing stone in the mid right kidney. Urinary bladder is distended without wall thickening. No ureteral stones on either side. The left ureter is slightly dilated compared to right, there is minimal left perinephric stranding. This may be due to recently passed stone or infection. GI tract: Stomach is decompressed. No bowel obstruction. No pericolonic inflammatory changes. Normal appendix. Vasculature and Lymph nodes: Normal caliber aorta. No abdominal or pelvic lymphadenopathy. Musculoskeletal: No inguinal hernia. No worrisome focal osseous lesions. IMPRESSION: 1. Mild asymmetric distention of the left ureter with minimal surrounding stranding. There is no left-sided ureteral stone and this may be due to a recently passed stone or could be due to ascending infection. Correlate with urinalysis is suggested. 2. Nonobstructing 5 mm right renal stone. 3. No inguinal hernia. Dictated by: Dictated on workstation # [id number] Dict: 12/28/21 1400 Trans: 12/28/21 1556 CV [id number] Interpreted by: ALDAIR SEVILLA MD Electronically signed by: ALDAIR SEVILLA MD 12/28/21 1556 Reviewed: Reviewed by Sd Diagonstic Imaging: Xray Plain Films/CT/US/NM/MRI: chest Comments [facility], [place] NAME: BETZAIDA ZAMUDIO [facility] REC#: [id number] PT STATUS: REG ER : 1980 PHYSICIAN: BE BILLS MD ADMIT DATE: 12/28/21/ER FS Signed Date of Exam:12/28/21 CHEST 1 VIEW AP/PA ONLY CHEST 1 VIEW AP/PA ONLY Indication: Shortness of breath Comparison: 10/22/2020 Findings: No focal airspace disease in the visualized lungs. No pleural effusion or pneumothorax. Normal cardiomediastinal silhouette. Impression: 1. No acute cardiopulmonary process by portable radiography. Dictated by: Dictated on workstation # [id number] Dict: 12/28/21 1403 Trans: 12/28/21 140 [facility] [id number] Interpreted by: ALDAIR SEVILLA MD Electronically signed by: ALDAIR SEVILLA MD 12/28/211403 Reviewed: Reviewed by Me Departure Impression Primary Impression: COVID-19 virus infection Additional Impressions: Left inguinal pain Fever and chills Headache Qualified Codes: R51.9 - Headache, unspecified Syncope Qualified Codes: R55 - Syncope and collapse Acute viral syndrome Acute cystitis without hematuria Disposition: HOME, SELF-CARE Condition: Stable Departure-Patient Inst. Decision time for Depature: 15:11 Referrals: BRAD WORTHY MD (PCP) Primary Care Physician Patient Instructions: COVID-19 ED, Fever, Adult ED, Headache, Adult ED, Urinary Tract Infection, Adult ED Add. Discharge Instructions: Stay well-hydrated and drink plenty of fluids. Try to get plenty of rest. You need to quarantine and isolate from others for 5 days due to being positive for COVID. You should continue to wear a mask for total of 10 days. On Wednesday, January 02 you be able to return to work. Take the full course of antibiotics to treat for urine infection. Take ibuprofen and alternate with acetaminophen if needed for pain and fever with chills as well as body aches. Check back with primary care provider if having continued concerns or not improving. All discharge instructions reviewed with patient and/or family. Voiced understanding. Scripts Ibuprofen (Ibuprofen) 800 Mg Tablet 800 MG PO Q8H PRN for PAIN for 10 Days, #30 TAB 0 Refills Prov: BE BILLS MD 12/28/21 Ciprofloxacin HCl (Ciprofloxacin HCl) 500 Mg Tablet 500 MG PO BID for UTI for 7 Days, #14 TAB 0 Refills Prov: BE BILLS MD 12/28/21 Nirmatrelvir/Ritonavir (Paxlovid 300-100 mg Pack (Eua)) 300 Mg (150 Mg X 2)-100 Mg Tab.ds.pk 1 EACH PO BID for Covid 19 Infection for 5 Days, #1 PKG 0 Refills Prov: BE BILLS MD 12/28/21 Work/School Note: Work Release Form Date Seen in the Emergency Department: Dec 28, 2021 Return to Work: Jan 02, 2022 Restrictions: Return-No Fever (24hrs) Other Restrictions Listed Below: Isolate until 01/02. Wear mask until 01/07. BE BILLS MD Dec 28, 2021 13:11
[2021-12-28 13:22] LABS: ALANINE AMINOTRANSFERASE 20 U/L (0-55); ALBUMIN 4.8 GM/DL (3.2-4.5); ALKALINE PHOSPHATASE 85 U/L (40-136); BILIRUBIN,TOTAL 0.4 MG/DL (0.1-1.0); BUN/CREATININE RATIO 13; CALCIUM 9.7 MG/DL (8.5-10.1); CARBON DIOXIDE 18 MMOL/L (21-32); CHLORIDE 103 MMOL/L (98-107); CREATININE SERUM 1.15 MG/DL (0.60-1.30); GFR ESTIMATED 81; GLUCOSE 113 MG/DL (70-105); POTASSIUM 3.8 MMOL/L (3.6-5.0); SODIUM 137 MMOL/L (135-145); TOTAL PROTEIN 7.2 GM/DL (6.4-8.2)
[2021-12-28 13:34] LABS: EOSINOPHILS % (MANUAL) 1 %; LYMPHOCYTES % (MANUAL) 6 %; MONOCYTES % (MANUAL) 9 %; NEUTROPHILS % (MANUAL) 84 %
[2021-12-28] MEDS ORDERED: LACTATED RINGERS 1,000 ML IV STA (13:53)
--- NOTE | 2021-12-28 14:05 | Diagnostic Imaging Report ---
CT ABDOMEN/PELVIS W TECHNIQUE: Multiple contiguous axial images were obtained through the abdomen and pelvis after administration of intravenous contrast. All CT scans use one or more of the following dose optimizing techniques: automated exposure control, MA and/or KvP adjustment based on patient size and exam type or iterative reconstruction. INDICATION: Left groin pain with fever and chills. COMPARISON: None available. FINDINGS: Lower chest: The lung bases are clear. No pericardial or pleural effusion. Peritoneum: No free intraperitoneal air or fluid. Liver and biliary system: Diffuse hypoattenuation liver is most indicative of hepatic steatosis. The gallbladder is normal. No biliary duct dilation. Spleen and Pancreas: Spleen is normal. The pancreas enhances normally without mass lesion or peripancreatic inflammatory changes. Adrenals: Normal. tract: The kidneys enhance normally without suspicious mass or obstruction. There is a 5 mm nonobstructing stone in the mid right kidney. Urinary bladder is distended without wall thickening. No ureteral stones on either side. The left ureter is slightly dilated compared to right, there is minimal left perinephric stranding. This may be due to recently passed stone or infection. GI tract: Stomach is decompressed. No bowel obstruction. No pericolonic inflammatory changes. Normal appendix. Vasculature and Lymph nodes: Normal caliber aorta. No abdominal or pelvic lymphadenopathy. Musculoskeletal: No inguinal hernia. No worrisome focal osseous lesions. IMPRESSION: 1. Mild asymmetric distention of the left ureter with minimal surrounding stranding. There is no left-sided ureteral stone and this may be due to a recently passed stone or could be due to ascending infection. Correlate with urinalysis is suggested. 2. Nonobstructing 5 mm right renal stone. 3. No inguinal hernia. Dictated by: Dictated on workstation # [id number]
--- NOTE | 2021-12-28 14:05 | Diagnostic Imaging Report ---
CHEST 1 VIEW AP/PA ONLY Indication: Shortness of breath Comparison: 10/22/2020 Findings: No focal airspace disease in the visualized lungs. No pleural effusion or pneumothorax. Normal cardiomediastinal silhouette. Impression: 1. No acute cardiopulmonary process by portable radiography. Dictated by: Dictated on workstation # [id number]
[2021-12-28 14:14] LABS: BILIRUBIN,URINE NEGATIVE (NEGATIVE); CLARITY,URINE CLEAR; COLOR,URINE YELLOW; GLUCOSE, URINE (UA) NEGATIVE (NEGATIVE); KETONES,URINE NEGATIVE (NEGATIVE); LEUKOCYTE ESTERASE ,URINE NEGATIVE (NEGATIVE); NITRITE,URINE NEGATIVE (NEGATIVE); PH,URINE 5.5 (5-9); PROTEIN,URINE NEGATIVE (NEGATIVE)
[2021-12-28 14:17] LABS: BACTERIA,URINE FEW /HPF
[2021-12-28 14:31] LABS: AMPHETAMINE SCREEN, URINE NEGATIVE (NEGATIVE); BARBITURATE SCREEN URINE NEGATIVE (NEGATIVE); BENZODIAZEPINES SCREEN URINE NEGATIVE (NEGATIVE); CANNABINOID SCREEN, URINE NEGATIVE (NEGATIVE); COCAINE SCREEN URINE NEGATIVE (NEGATIVE); METHADONE STAT NEGATIVE (NEGATIVE); OPIATE SCREEN URINE NEGATIVE (NEGATIVE); OXYCODONE STAT NEGATIVE (NEGATIVE); PROPOXYPHENE STAT NEGATIVE (NEGATIVE); TRICYCLIC ANTIDEPRESSANTS SCRE POSITIVE (NEGATIVE)
[2021-12-28] MEDS ORDERED: cefTRIAXone 1 GM PRE-MIX 50 ML IV STA (15:03)
[2021-12-28] MEDS ORDERED: NIRM1TAB PO (15:19)
[2021-12-28] MEDS ORDERED: CIPR500T5 PO (15:19)
[2021-12-28] MEDS ORDERED: IBUP-1780 PO (15:19)
[2021-12-28 15:23] VITALS: BP 125/72
== END 2021-12-28 15:24 | disposition home or self-care (01) ==
LOC: EDUNIT# 12:31 → ER FS 12:32
DX: U07.1 COVID-19 (principal); N30.00 Acute cystitis without hematuria; B34.9 Viral infection, unspecified; R55 Syncope and collapse; R51.9 Headache, unspecified; F17.210 Nicotine dependence, cigarettes, uncomplicated; Z28.310 Unvaccinated for COVID-19
CPT/HCPCS: 36415; 71045; 74177; 80053; 80306; 81000; 83605; 85007; 85027; 86141; 87040; 87088; 87636; 99284; G0480; 80320; Q9967